=== PATIENT | female | born 1990 | race Caucasian/White ===

== ENCOUNTER → 2021-05-21 11:49 | Outpatient (CLI) | payer OTHER, SELFPAY ==
[2021-05-21 12:36] LABS: Hematocrit 38.6 % (36-46); Hemoglobin 12.4 g/dL (12.0-16.0); Mean Corpuscular HGB Conc 32.1 % (30-36); Mean Corpuscular Hemoglobin 26.1 PG (26-34); Mean Corpuscular Volume 81.5 fL (80-100); Platelet Count 263 X10^3/uL (150-400); Red Blood Cell Count 4.74 X10^6/uL (4.0-5.2); Red Cell Distribution Width 17.5 % (11.6-14.8)
[2021-05-21 13:19] LABS: Alanine Aminotransferase 20 IU/L (<35); Albumin 4.2 g/dL (3.5-5.0); Albumin Globulin Ratio 1.3 (1.0-2.8); Alkaline Phosphatase 80 U/L (38-126); Aspartate Aminotransferase 31 IU/L (14-36); BUN Creatinine Ratio 16.2 (6-22); Bilirubin Total 0.4 mg/dL (0.2-1.3); Blood Urea Nitrogen 11 mg/dL (7-17); Calcium 9.2 mg/dL (8.4-10.2); Carbon Dioxide 25 mmol/L (22-32); Chloride 106 mmol/L (98-107); Cholesterol 147 mg/dL (140-199); Estimated Glomerular Filt Rate > 60.0 mL/min (>60); Globulin 3.3 g/dL (1.7-4.1); Glucose 82 mg/dL (70-100); HDL Cholesterol 60 mg/dL (40-60); HEMOLYSIS < 15 (0-50); LDL Cholesterol Calculated 79 mg/dL (<100); Potassium 3.9 mmol/L (3.4-5.1); Sodium 137 mmol/L (137-145); Total Protein 7.5 g/dL (6.3-8.2); Triglycerides 39 mg/dL (35-150)
[2021-05-21 13:49] LABS: TSH w/ Reflex to FT4 0.88 uIU/mL (0.47-4.68)
== END ==
PROVIDERS: PCP Nurse Practitioner Family; Referring Provider Nurse Practitioner Family; Visit Provider Nurse Practitioner Family
DX: N92.0 Excessive and frequent menstruation with regular cycle (principal); N92.6 Irregular menstruation, unspecified; R10.2 Pelvic and perineal pain; Z13.220 Encounter for screening for lipoid disorders
CPT/HCPCS: 36415; 80053; 80061; 84443; 85027

== ENCOUNTER → 2021-07-09 09:45 | Outpatient (CLI) | payer OTHER, SELFPAY ==
[2021-07-09 11:00] LABS: Prolactin 9.5 ng/mL (3.0-18.6)
[2021-07-09 11:01] LABS: Erythrocyte Sedimentation Rate 7 MM/HR (0-20)
== END ==
PROVIDERS: PCP Nurse Practitioner Family; Referring Provider Obstetrics & Gynecology; Visit Provider Obstetrics & Gynecology
DX: N92.6 Irregular menstruation, unspecified (principal)
CPT/HCPCS: 36415; 84146; 85651

== ENCOUNTER → 2021-07-16 11:40 | Outpatient (CLI) | payer OTHER, SELFPAY ==
--- NOTE | 2021-07-16 11:41 | DI.US.S_ITS ---
PROCEDURE: US PELVIC COMPLETE INDICATIONS: DUB TECHNIQUE: Real-time scanning was performed of the pelvic organs, with image documentation. Additional endovaginal scanning was necessary due to incomplete visualization of the adnexal and endometrial structures by transabdominal scanning. COMPARISON: None. FINDINGS: Uterus: Uterus is normal in size at 8.3 x 4.5 x 6.3 cm. The endometrium measures 18 mm in combined thickness. The endometrial stripe is thickened and heterogeneous. Ovaries: The right ovary measures 2.6 x 1.7 x 3.6 cm. The left ovary measures 3.4 x 2 x 2.9 cm and demonstrates a complex cyst with increased perform vascularity that measures up to 1.9 cm. The ovaries otherwise have a normal sonographic appearance. No adnexal masses are seen. Other: No pathologic free abdominal or pelvic fluid. IMPRESSION: Abnormally thickened and heterogeneous endometrial stripe, measuring 18 mm. 19 mm complex cyst seen involving the left ovary, which is likely related to a collapsing hemorrhagic cyst. Dictated by: Christian Amin M.D. on 07/16/2021 at 12:46 Approved by: Christian Amin M.D. on 07/16/2021 at 12:48
== END ==
PROVIDERS: PCP Nurse Practitioner Family; Referring Provider Obstetrics & Gynecology; Visit Provider Obstetrics & Gynecology
DX: N94.6 Dysmenorrhea, unspecified (principal); N92.0 Excessive and frequent menstruation with regular cycle; N92.6 Irregular menstruation, unspecified; N83.292 Other ovarian cyst, left side; R93.89 Abnormal findings on diagnostic imaging of other specified body structures
CPT/HCPCS: 76830; 76856

== ENCOUNTER → 2021-07-30 11:20 | Outpatient (CLI) | payer OTHER, SELFPAY ==
[2021-07-30 12:43] LABS: COVID19 -Nasal RAPID Negative (Negative)
== END ==
PROVIDERS: PCP Nurse Practitioner Family; Visit Provider Obstetrics & Gynecology
DX: Z01.812 Encounter for preprocedural laboratory examination (principal); Z20.822 Contact with and (suspected) exposure to COVID-19
CPT/HCPCS: 87635

== ENCOUNTER 2021-07-30 11:28 | Day surgery (SDC) | payer OTHER, SELFPAY ==
[2021-07-27 15:02] VITALS: BMI 36.5
--- NOTE | 2021-07-28 08:34 | P.HPOB_ITS ---
History of Present Illness History of Present Illness Narrative: Kim is a 31-year-old A1 who has been attempting to conceive with the father of her 2 pregnancies for the last 12 months without success.? Patient experienced menarche at age 15 and had regular predictable monthly menses up until about 6 months ago.? She conceived spontaneously and delivered a viable female via spontaneous vaginal in January of 2016.? That was complicated by preeclampsia in the 3rd trimester and hemorrhage.? In 2018 she conceived again but had an an embryonic and spontaneously miscarried approximately 9 weeks.? She did not have a D&C and they followed her with serial ultrasounds for 2-3 weeks at the end of which she developed endometritis and was admitted with fever and pelvic pain for IV antibiotic therapy.? She recovered completely and has no residual pelvic pain components and nurse periods remain regular up until about 6 months ago.? Since that time her intermenstrual interval has been extremely variable with spotting and staining in between.? In addition the nature for vaginal bleeding during her menses is quite different in that it is bright red with clots as opposed to dark sticky menstrual blood consistent with anovulatory bleeding.? Of note however is that over the last year she has gained 30 lb without any significant change in her diet or activity levels.? Over that 12 month period of time she and her have tried to conceive that have been unsuccessful in doing so.? Her is the father of her child and her partner at the time of conception for the failed in 2019.? Her primary care provider has performed some blood work already with a TSH recently of 0.88.? She has not had any pelvic imaging and no evaluation of tubal patency to this point.? 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 Pap smear is current and she has a history of normal Paps throughout her adult reproductive life. 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 Following her initial assessment, the patient had pelvic ultrasound performed which shows the endometrial stripe to be thickened to 18 mm and heterogenous.? In addition there is a 1.9 cm complex cyst within the left ovary which measures 3.4 x 2 x 2.9 cm.? After reviewing the findings with the patient and discussing options for further evaluation/management, the decision was made to proceed with laparoscopy, possible left ovarian cystectomy, chromotubation, hysteroscopy with possible biopsies, and dilation and curettage of the uterus.? She presents today for her scheduled surgery. [facility] Medical History Anemia (~2015) Anxiety (~2019) Chicken pox (~1991) Depression (~2019) Headache (~2007) Heavy menses (~1999) Irregular menstrual cycle Leg pain (~2019) MRSA (methicillin resistant Staphylococcus aureus) (~2011) Ovarian cyst Painful menstrual periods (~2001) Pelvic cramping Preeclampsia (~2015) Seborrheic dermatitis (~2011) Seizures (~1995) Surgical History Anesthesia History of tonsillectomy [place] teeth removed Family History Father Skin cancer Mother Anxiety Joint pain Mental health problem Brother Anxiety Mental health problem Grandfather Cancer History of heart disease Hyperlipidemia Hypertension Grandmother Cancer History of heart disease Diabetes mellitus Hypertension Mental health problem Stroke Grandfather Skin cancer Hypertension Stroke Social History household members: spouse and children Smoking Status: Never smoker alcohol intake: current substance use type: does not use Meds Home Medications and Allergies Home Medications Medication Instructions Recorded Confirmed Type multivitamin 1 tab PO DAILY 05/07/21 07/28/21 History L.acidoph, paracasei,B. lactis 10 cell PO 07/28/21 07/28/21 History billion cell capsule (Digestive Advantage Advanced Probiotic) Allergies Allergy/AdvReac Type Severity Reaction Status Date / Time cefaclor [From Ceclor] AdvReac Intermediate Hives Verified 07/28/21 07:59 Review of Systems Review of Systems Narrative: Problem-specific ROS positives included in HPI Exam Const General: cooperative and comfortable Nutritional Appearance: overweight Orientation: alert and oriented x3 HENMT Head: atraumatic and abrasion Ears: hearing grossly normal bilaterally Nose: external nose normal Mouth: oral mucosae normal Teeth and gingiva: dentition normal Throat: posterior oropharynx normal Eyes General: appearance normal, both eyes and all related structures Eyelids: eyelids normal Conjunctivae: conjunctivae normal Sclera: sclerae normal Cornea: corneas normal Pupils: PERRL EOM: EOM intact bilaterally Resp Effort & Inspection: normal respiratory effort and able to speak in complete sentences Auscultation: clear to auscultation bilaterally Cardio Rate: regular rate Rhythm: regular rhythm Heart Sounds: S1 normal, S2 normal and no murmurs GI Inspection: normal to inspection Palpation: soft, no hepatosplenomegaly and tender (RLQ) External Female Exam: normal external appearance Speculum Exam - Vagina: normal appearance of the vagina and normal vaginal discharge Speculum Exam - Cervix: normal appearance of the cervix and cervical os open Bimanual Exam- Vagina & Uterus: normal bimanual exam, uterine size normal, uterine shape normal and non-tender Bimanual Exam- Adnexa, other: normal adnexae, no masses and tender (Mild, bilateral) OB/External & Speculum: cervical os open Skin General: no rashes or lesions noted Extrem General: no calf tenderness Psych Appearance: grossly normal Mental Status: mental status grossly normal Speech and Movement: speech and movement normal Mood: congruent mood Affect: normal affect Attitude: cooperative Thought Process: normal Thought Content: normal Judgment: judgment good Assessment & Plan Assessment and plan (1) Left ovarian cyst: Status: Acute (2) Abnormal vaginal bleeding with endometrial thickness less than 16 mm present on transvaginal ultrasound in premenopausal patient: Status: Acute (3) Pelvic pain: Status: Acute (4) Secondary female infertility: Status: Acute (5) Menometrorrhagia: Status: Acute Assessment & Plan narrative: Patient counseled regarding alternatives, risks, benefits, and potential complications associated with diagnostic laparoscopy with possible left ovarian cystectomy, chromotubation, hysteroscopy with possible biopsies, dilation and curettage of the uterus.? With full understanding of the above a written consent was executed, signed, and witnessed 07/28/2021. COVID-19 COVID-19 status: Negative Time Spent With Patient Time with patient: less than 30 minutes
[2021-07-30] VITALS (11 sets, daily range): BP systolic 115–135; BP diastolic 72–97; PULSE 60–84; RESP 12–20; TEMP 36.1–36.6; O2SAT 96–100; BMI 36.0
--- NOTE | 2021-07-30 | PATH_ITS ---
[facility] Accession Number: [id number] . 01 Material submitted: . endometrium - ENDOMETRIAL CURETTINGS . 02 Diagnosis: Endometrial, Curettings: Portions of proliferative endometrium; negative for glandular hyperplasia, cytologic atypia, or malignancy. Some endometrial fragments demonstrate prominent vessels, suggestive of polyp, if clinical and imaging studies are concordant. MRV 08/03/2021 1359 Local . 02 Electronically signed: . Shari Maldonado MD, Pathologist NPI- [id number] . 01 Gross description: . ENDOMETRIAL CURETTINGS: Received in formalin are multiple fragment(s) of rogers, soft tissue measuring 3.0 x 2.5 x 0.9 cm in aggregate submitted entirely in 2 cassette(s) /QBJ 07/31/2021 0833 Local . 02 Pathologist provided ICD-10: N92.0, R93.89, N83.202, N92.4, R10.2, N97.9, N92.1 . 02 CPT . 871869 Performed at: 01 [facility] [address], [place], [place] [id number] MD Perfecto Pimentel MD Phone: [phone] Performed at: 02 [facility] [place] [address] [place], [place] [id number] MD Nancy El MD Phone: [phone]
[2021-07-30] MEDS: LACTATED RINGERS 1,000 ML 100 ML IV (12:40)
[2021-07-30] MEDS: SCOPOLAMINE 1 PATCH TOP (13:13)
--- NOTE | 2021-07-30 13:31 | PM.OP.1 ---
Operative Date/Time/Diagnoses Date of procedure: 07/30/21 Time of procedure: 13:45 Pre-op diagnosis: Pelvic pain, left ovarian cyst, secondary infertility, menometrorrhagia, thickened endometrial stripe Post-op diagnosis: other (Same as above; Pelvic endometriosis) Procedure & Clinicians Procedure: Diagnostic laparoscopy with fulguration/destruction of endometrial implants, lysis of adhesions, hysteroscopy, dilation and curettage of the uterus Same procedure as scheduled: Yes Indications: Kim is a 31-year-old A1 who has been attempting to conceive with the father of her 2 pregnancies for the last 12 months without success.? Patient experienced menarche at age 15 and had regular predictable monthly menses up until about 6 months ago.? She conceived spontaneously and delivered a viable female infant via spontaneous vaginal in January of 2016.? That was complicated by preeclampsia in the 3rd trimester and hemorrhage.? In 2018 she conceived again but had an an embryonic and spontaneously miscarried approximately 9 weeks.? She did not have a D&C and they followed her with serial ultrasounds for 2-3 weeks at the end of which she developed endometritis and was admitted with fever and pelvic pain for IV antibiotic therapy.? She recovered completely and has no residual pelvic pain components and nurse periods remain regular up until about 6 months ago.? Since that time her intermenstrual interval has been extremely variable with spotting and staining in between.? In addition the nature for vaginal bleeding during her menses is quite different in that it is bright red with clots as opposed to dark sticky menstrual blood consistent with anovulatory bleeding.? Of note however is that over the last year she has gained 30 lb without any significant change in her diet or activity levels.? Over that 12 month period of time she and her have tried to conceive that have been unsuccessful in doing so.? Her is the father of her child and her partner at the time of conception for the failed in 2019.? Her primary care provider has performed some blood work already with a TSH recently of 0.88.? She has not had any pelvic imaging and no evaluation of tubal patency to this point.? 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 Pap smear is current and she has a history of normal Paps throughout her adult reproductive life. 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 Following her initial assessment, the patient had pelvic ultrasound performed which shows the endometrial stripe to be thickened to 18 mm and heterogenous.? In addition there is a 1.9 cm complex cyst within the left ovary which measures 3.4 x 2 x 2.9 cm.? After reviewing the findings with the patient and discussing options for further evaluation/management, the decision was made to proceed with laparoscopy, possible left ovarian cystectomy, chromotubation, hysteroscopy with possible biopsies, and dilation and curettage of the uterus.? She presents today for her scheduled surgery. Surgeon: Mario Grey Crepe Laminator Operator: Deanna Ochoa Click Yes if Unassisted: Yes Anesthesia Type: General Operative Notes Findings: The uterus is normal in size and shape. It is in the mid plane to slightly retroverted. Both fallopian tubes are normal in their entirety. Each fimbria was carefully visualized and there was no evidence of agglutination or adhesion involvement. The anterior cul-de-sac has scattered superficial endometriotic implants. The ovaries are normal in size and there are no significant lesions noted within either ovary. On the surface of both ovaries are filmy endometriotic adhesions which were destroyed during the course of the surgery. In addition there are some paraovarian adhesions involving the right ovary to the upper portion of the pelvic sidewall and these 2 were lysed/destroyed during the course of the surgery. In the posterior cul-de-sac there are several endometriotic implants at the reflection of the sigmoid and the posterior aspect of the cervix. Early adhesion formation is ongoing but these adhesions were easily lysed with blunt dissection. There were superficial endometriotic implants on the left side of the posterior cul-de-sac as well as the right. There were no endometrial implants or adhesions involving the ovarian fossa on either side. The cecum and appendix were carefully visualized and there were no adhesions or evidence of endometriosis. The liver edge was unremarkable and the visible portion of the gallbladder was also unremarkable. Hysteroscopy demonstrated a normal endometrial cavity with a lush endometrium but no focal lesions visualized within the endometrial cavity. Closure Type: primary Estimated Blood Loss (mL): 25 Blood products transfused: none Procedure in detail: With the patient under satisfactory general endotracheal anesthesia in the modified dorsal lithotomy position, the abdomen, perineum, and vagina were prepped and draped in the usual fashion for this procedure. A pre-surgical safety time-out was then taken in accordance with [facility] OR protocols. A bivalve speculum was then inserted in the vagina and the anterior lip of the cervix grasped with a single-tooth tenaculum. The endocervical canal was easily dilated so as to be able to introduce a Zumi uterine manipulator which was held in place with a 5 cc balloon. The umbilicus was then infiltrated with lidocaine with epinephrine and a 5 mm incision was made vertically in the umbilical skin. A Veress needle was then used to insufflate the abdomen with carbon dioxide and a 5 mm trocar and sleeve were placed. The scope was used to visualize the abdominal cavity and 2 additional 5 mm ports were placed on the right and left mid quadrant after infiltration of the skin and subcutaneous tissues with lidocaine. Using a 3 puncture technique the pelvis and abdomen were visualized laparoscopically and documented photographically. The pelvis was carefully inspected and the adhesions from the rectosigmoid to the posterior aspect of the cervix were easily divided with blunt dissection. The cul-de-sac was thoroughly irrigated and all the areas of abnormality carefully visualized. Using a PK device, bipolar current was used to coagulate all the areas of superficial endometriosis in the posterior cul-de-sac and the anterior cul-de-sac. With the rectosigmoid away from the posterior aspect of the cervix, the areas of endometriosis involving the posterior aspect of the cervix were then coagulated with bipolar current. The right ovary was then mobilized and the adhesions identified. The adhesions were excised and coagulated with the PK device. Superficial filmy adhesions involving the surface of the ovary on the right side were then coagulated with the PK device as well. At the completion of the case there were no adhesions involving either the ovary or the tube on the right-hand side. Attention was then turned to the left and a small superficial implant of endometriosis on the serosa of the distal isthmic portion of the left tube was grasped with the PK device and carefully coagulated. Adhesions involving the surface of the ovary on the left were then coagulated with the PK device. At the end of this portion of the case or no adhesions remaining on the surface of the left ovary. The pelvis was carefully inspected again and there were no apparent areas of residual endometriosis or bleeding. The pneumoperitoneum was then vented, the laparoscopic sleeves removed, and incisions closed with 4-0 Monocryl using inverted interrupted stitches. Appropriate dressings were applied and attention was turned to performance of hysteroscopy. The Zumi manipulator was then removed from the endometrial cavity and a bivalve speculum inserted in the vagina. The cervix was regrasped by the anterior lip with single-tooth tenaculum and the endocervical canal dilated easily. Hysteroscope was then placed into the endometrial cavity and using sterile saline as a distention medium the endometrial cavity was thoroughly visualized. There were no focal lesions within the endometrial cavity but instead the entire endometrium was diffusely thickened. The hysteroscope was then removed and curettage of the uterus accomplished with an endometrial curettage specimen submitted for pathologic evaluation. The tenaculum was then removed from the cervix and there were no bleeding points noted. The speculum was removed from the vagina and the patient was awaken from general anesthesia at that point having tolerated the procedure well. She was transferred to the PACU for a period of recovery and observation. Estimated blood loss was 25 cc and there were no complications experienced. Complications: none Post-operative Condition: stable Disposition: PACU Plan for aftercare: Routine post-op care. 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
[2021-07-30] MEDS: AMPICILLIN/SULBACTAM 3 GM 3 GM in SODIUM CHLORIDE 0.9% 100 ML IV (13:45)
[2021-07-30] MEDS: ACETAMINOPHEN IV 1,000 MG/100 ML VIAL 400 MG IV (13:54)
--- NOTE | 2021-07-30 14:12 | SUR.OPER ---
Lithotomy on padded OR bed, head on pillow, arms secured on padded arm boards at <90 degrees abduction. Legs secured in padded yellow fins stirrups.
[2021-07-30] MEDS: BUPIVACAINE 0.5% (PF) 30 ML, EPINEPHrine 0.15 MG INJ (14:24)
[2021-07-30] MEDS: HYDROMORPHONE 2 MG INJ IV ×3 (15:01→15:27)
[2021-07-30] MEDS: hydrOXYzine 50 MG/ML INJ 25 MG IM (15:46)
[2021-07-30] MEDS: OXYCODONE IR 5 MG TABLET PO (16:33)
== END 2021-07-30 17:00 | disposition home or self-care (01) ==
PROVIDERS: PCP Nurse Practitioner Family; Referring Provider Obstetrics & Gynecology; Visit Provider Obstetrics & Gynecology
PROC: (CPT 58662; principal; 2021-07-30 13:30)
PROC: 0UDB8ZZ Extraction of Endometrium, Via Natural or Artificial Opening Endoscopic (ICD-10-PCS; CPT 58558; 2021-07-30 13:30)
DX: R93.89 Abnormal findings on diagnostic imaging of other specified body structures (principal); N83.202 Unspecified ovarian cyst, left side; N97.9 Female infertility, unspecified; N92.1 Excessive and frequent menstruation with irregular cycle; Z20.822 Contact with and (suspected) exposure to COVID-19; N73.6 Female pelvic peritoneal adhesions (postinfective); N80.3 Endometriosis of pelvic peritoneum
CPT/HCPCS: 58662; 58558; 81025; 87635; J0131; J0171; J0295; J1100; J1170; J1885; J2250; J2405; J2704; J3010; J3410

== ENCOUNTER → 2022-08-16 09:59 | Outpatient (CLI) | payer OTHER, SELFPAY ==
--- NOTE | 2022-08-16 10:00 | DI.US.S_ITS ---
PROCEDURE: US OB <= 14 WEEKS FETUS INDICATIONS: DATING OUTSIDE/PRIOR DATING DATA: Last menstrual period (LMP): 06/20/22. LMP-based estimated date of delivery (NORBERT): 03/27/23. First dating scan (date and location): 08/16/22, current study. Estimated date of delivery (NORBERT) from first dating scan: 03/28/23. TECHNIQUE: Real-time scanning was performed of the fetus and maternal pelvic organs, with image documentation. Endovaginal scanning was also performed to better visualize the fetus and maternal ovaries. COMPARISON: None. FINDINGS: Anteverted uterus contains a fundal gestational sac with a decidual response. And there is a single pole with a crown-rump length of 1.56 cm corresponding to an eight week 0 day plus or minus five days gestation. There is detectable cardiac activity at a rate of 173 beats per minute. An unfused amnion is noted. No perigestational hemorrhage. Both ovaries have a normal appearance. There is a dominant follicle within the right ovary. The cervix is closed. No free pelvic fluid. IMPRESSION: 1. Single living intrauterine with a gestational age of eight weeks 0 days, in good agreement with the clinically assigned gestational age. We strive to produce accurate, complete, and clear reports of imaging services. To assist us in improving patient care, this report was composed using standard report templates and voice recognition software. Therefore, it may contain abnormal punctuation, insertions and/or omissions. Occasional wrong-word or sound-alike substitutions may occur. Though we review the report and make efforts to correct it, we do recommend that the report be read carefully in proper context to recognize any text inaccuracies. Dictated by: Meg Georges M.D. on 08/16/2022 at 11:44 Approved by: Meg Georges M.D. on 08/16/2022 at 11:47
== END ==
PROVIDERS: PCP Registered Nurse Diabetes Educator; Referring Provider Obstetrics & Gynecology; Visit Provider Obstetrics & Gynecology
DX: Z34.81 Encounter for supervision of other normal pregnancy, first trimester (principal); Z3A.08 8 weeks gestation of pregnancy
CPT/HCPCS: 76801; 76830

== ENCOUNTER → 2022-09-28 12:33 | Outpatient (CLI) | payer OTHER, SELFPAY ==
[2022-09-28 13:36] LABS: Add Manual Diff / Slide Review NO; Basophils Absolute Auto 0 /uL (0-100); Basophils Percent Auto 0.2 % (0-2); Eosinophils Absolute Auto 0 /uL (0-450); Hematocrit 38.9 % (36-46); Hemoglobin 12.8 g/dL (12.0-16.0); Lymphocytes Absolute Auto 2700 /uL (1100-4500); Lymphocytes Percent Auto 23.4 % (25-40); Mean Corpuscular HGB Conc 32.9 % (30-36); Mean Corpuscular Hemoglobin 29.5 PG (26-34); Mean Corpuscular Volume 89.7 fL (80-100); Monocytes Absolute Auto 600 /uL (0-900); Monocytes Percent Auto 5.2 % (3-14); Neutrophils Absolute Auto 8200 /uL (1500-7000); Neutrophils Percent Auto 71.2 % (50-75); Platelet Count 241 X10^3/uL (150-400); Red Blood Cell Count 4.33 X10^6/uL (4.0-5.2); Red Cell Distribution Width 14.1 % (11.6-14.8); White Blood Cell Count 11.5 X10^3/uL (4.5-11.0)
[2022-09-28 13:51] LABS: Appearance Urine UA CLEAR; Bilirubin Urine UA NEGATIVE (NEGATIVE); Color Urine UA YELLOW; Glucose Urine UA NEGATIVE (Negative); Ketones Urine UA NEGATIVE (NEGATIVE); Leukocyte Esterase Urine UA NEGATIVE (NEGATIVE); Nitrite Urine UA NEGATIVE (Negative); Occult Blood Urine UA NEGATIVE (Negative); Protein Urine UA NEGATIVE (Negative); Specific Gravity Urine UA <=1.005 (1.000-1.035); Urobilinogen Urine UA 0.2 E.U./dL (0.2)
[2022-09-28 13:53] LABS: pH Urine UA 6.5 (4.5-8.0)
[2022-09-28 13:59] LABS: Alanine Aminotransferase 31 IU/L (<35); Albumin 3.9 g/dL (3.5-5.0); Albumin Globulin Ratio 1.1 (1.0-2.8); Alkaline Phosphatase 76 U/L (38-126); Aspartate Aminotransferase 28 IU/L (14-36); BUN Creatinine Ratio 19.6 (6-22); Bilirubin Total 0.2 mg/dL (0.2-1.3); Blood Urea Nitrogen 10 mg/dL (7-17); Calcium 8.6 mg/dL (8.4-10.2); Carbon Dioxide 25 mmol/L (22-32); Chloride 100 mmol/L (98-107); Estimated Glomerular Filt Rate > 60 mL/min (>60); Globulin 3.5 g/dL (1.7-4.1); Glucose 71 mg/dL (70-100); HEMOLYSIS < 15 (0-50); Potassium 3.5 mmol/L (3.4-5.1); Sodium 135 mmol/L (137-145); Total Protein 7.4 g/dL (6.3-8.2); Uric Acid 2.6 mg/dL (2.5-6.2)
[2022-09-29 05:24] LABS: RPR Screen Non Reactive (Non Reactive)
[2022-09-29 07:39] LABS: Varicella IgG Antibody 1070 index (Immune >165)
[2022-09-30 18:36] LABS: HIV 1 & 2 Ab/Ag 4th Gen Combo NEGATIVE (NEGATIVE); Hep C Virus Ab w/Reflex Quant NEGATIVE s/c (NEGATIVE); Hepatitis B Surface Antigen NEGATIVE s/c (NEGATIVE); Rubella Antibody IgG 51.9 IU/mL (>15)
== END ==
PROVIDERS: PCP Registered Nurse Diabetes Educator; Referring Provider Obstetrics & Gynecology; Visit Provider Obstetrics & Gynecology
DX: O09.299 Supervision of pregnancy with other poor reproductive or obstetric history, unspecified trimester (principal)
CPT/HCPCS: 36415; 80053; 80055; 81003; 84550; 86787; 86803; 86850; 86900; 86901; 87086; 87389

== ENCOUNTER → 2022-10-27 14:16 | Outpatient (CLI) | payer OTHER, SELFPAY ==
[2022-10-27 20:08] LABS: Urine N gonorrhoeae NOT DETECTED
[2022-10-27 20:35] LABS: Urine Chlamydia DETECTED
[2022-10-29 20:38] LABS: AFP, Serum 26.3 ng/mL (.); Estriol, Free 1.29 ng/mL (.); Inhibin A, Dimeric 86.45 pg/mL (.); Maternal Ethnicity Caucasian (.); Maternal Weight 234 lbs (.); Number of Fetuses No (.); OSBR Risk 1 IN 10000 (.); Results Report (.); Test Results *Screen Negative* (.); hCG, MoM 1.28 (.); hCG, Serum 28466 mIU/mL (.)
[2022-11-01 14:51] LABS: AFP PDF SEE PT SCANS
== END ==
PROVIDERS: PCP Registered Nurse Diabetes Educator; Referring Provider Obstetrics & Gynecology; Visit Provider Obstetrics & Gynecology
DX: Z34.82 Encounter for supervision of other normal pregnancy, second trimester (principal); Z11.3 Encounter for screening for infections with a predominantly sexual mode of transmission; Z3A.18 18 weeks gestation of pregnancy
CPT/HCPCS: 36415; 82105; 82677; 84702; 86336; 87491; 87591

== ENCOUNTER → 2022-11-09 10:18 | Outpatient (CLI) | payer OTHER, SELFPAY ==
[2022-11-09 15:29] LABS: Urine N gonorrhoeae NOT DETECTED
[2022-11-09 15:30] LABS: Urine Chlamydia NOT DETECTED
== END ==
PROVIDERS: PCP Registered Nurse Diabetes Educator; Visit Provider Obstetrics & Gynecology
DX: A74.9 Chlamydial infection, unspecified (principal)
CPT/HCPCS: 87491; 87591

== ENCOUNTER → 2022-11-09 10:18 | Outpatient (CLI) | payer OTHER, SELFPAY ==
--- NOTE | 2022-11-09 10:19 | DI.US.S_ITS ---
PROCEDURE: US OB >= 14 WEEKS FETUS INDICATIONS: 20 Week Anatomy Scan OUTSIDE/PRIOR DATING DATA: Last menstrual period (LMP): 06/20/2022 LMP-based estimated date of delivery (NORBERT): 03/27/2023 First dating scan (date and location): 08/16/2022 Estimated date of delivery (NORBERT) from first dating scan: 03/28/2023 The calculations are made using the working NORBERT of 03/28/2023. TECHNIQUE: Real-time scanning was performed of the fetus, with image documentation and biometric measurements. Endovaginal scanning: Not indicated COMPARISON: None. FINDINGS: General: A single living intrauterine gestation is present. Presentation: Vertex Placenta: Placental position is fundal, without previa. Amniotic fluid index: 15.9 cm, normal range is 5-24 cm. Single deepest vertical pocket is 5.5 cm. heart rate: 143 beats per minute. Maternal cervical canal: 4.3 cm long. Normal lower limit is 2.5 cm. biometrics: Biparietal diameter: 4.9 cm, 20 weeks, 5 days Head circumference: 18.3 cm, 20 weeks, 5 days Abdominal circumference: 17.2 cm, 22 weeks, 1 day Femur length: 3.3 cm, 20 weeks, 3 days Clinically estimated gestational age: 20 weeks, 2 days Composite gestational age from present scan: 21 weeks, 0 day Estimated weight and percentile: 414 grams, 93 percent Anatomic survey: Neuro: Ventricles are non-dilated at less than 10 mm. Cisterna magna is normal at 3-11 mm. Cerebellum is normal in size and morphology. Nuchal skin fold: Normal at less than 6 mm between 14-21 weeks gestational age. Face: Nose and lips, facial profile are normal. Spine: No evidence for spina bifida. Heart: 4-chambered heart is present, with normal ventricular outflow tracts. Diaphragm: Diaphragm is intact. Stomach: Left-sided stomach is present. Kidneys: No hydronephrosis. Normal is less than 5 mm in 2nd trimester, less than 7 mm in 3rd trimester. Cord: 3-vessel cord has orthotopic insertion. Bladder: Normal in size. Extremities: All 4 extremities identified. IMPRESSION: 1. Single live intrauterine gestation with fetus in vertex presentation. heart rate is 143 beats per minute. Normal amount of amniotic fluid. Normal growth. Estimated weight is at 93 percent. 2. Normal anatomic survey. We strive to produce accurate, complete, and clear reports of imaging services. To assist us in improving patient care, this report was composed using standard report templates and voice recognition software. Therefore, it may contain abnormal punctuation, insertions and/or omissions. Occasional wrong-word or sound-alike substitutions may occur. Though we review the report and make efforts to correct it, we do recommend that the report be read carefully in proper context to recognize any text inaccuracies. Dictated by: Fabrizio Goodson M.D. on 11/09/2022 at 17:53 Approved by: Fabrizio Goodson M.D. on 11/09/2022 at 17:55
== END ==
PROVIDERS: PCP Registered Nurse Diabetes Educator; Referring Provider Obstetrics & Gynecology; Visit Provider Obstetrics & Gynecology
DX: O98.812 Other maternal infectious and parasitic diseases complicating pregnancy, second trimester (principal); Z3A.21 21 weeks gestation of pregnancy
CPT/HCPCS: 76811; 87491; 87591

== ENCOUNTER 2022-11-23 20:35 | Observation (INO) | payer OTHER, SELFPAY ==
--- NOTE | 2022-11-23 21:14 | P.TNLD_ITS ---
Visit Information Visit Information Date of evaluation: 11/23/22 Primary OB Provider: Mario Grey On-call OB Provider: Serena Barkley Comments/Additional reasons for admission: 32yo at 22w2d here with LOF. The pt reports that she took a shower this evening, and when came out had liquid continuously dripping down her leg. This persisted after drying - not large amounts, but enough she was concerned. It was odorless and colorless. She denies any cramping/contractions or vaginal bleeding. She is feeling her baby move regularly. [facility] Medical History (Updated 11/24/22 @ 11:28 by Serena Barkley MD) Abnormal vaginal bleeding with endometrial thickness less than 16 mm present on transvaginal ultrasound in premenopausal patient Anemia (~2015) Anxiety (~2019) Chicken pox (~1991) Depression (~2019) Headache (~2007) Heavy menses (~1999) Infertility (~2020) Irregular menstrual cycle Leg pain (~2019) Menometrorrhagia MRSA (methicillin resistant Staphylococcus aureus) (~2011) Ovarian cyst Painful menstrual periods (~2001) Pelvic cramping Preeclampsia (~2015) Seborrheic dermatitis (~2011) Secondary female infertility Seizures (~1995) Surgical History (Updated 07/28/22 @ 10:12 by Mckenzie Child RN) Anesthesia History of hysteroscopy History of tonsillectomy [place] teeth removed Family History (Updated 07/28/22 @ 10:18 by Mckenzie Child, LUANA) Father Skin cancer Melanoma Nerve damage Mother Anxiety Degenerative joint disease Small bowel mass Brother Anxiety Low testosterone Grandfather Cancer History of heart disease Hyperlipidemia Hypertension Grandmother History of heart disease Diabetes mellitus Hypertension Mental health problem Stroke Breast cancer Grandfather Skin cancer Hypertension Stroke Social History marital status: number of children: 1 household members: spouse and children lives independently: Yes housing: house pets and animals: Yes (1 small dog) education level: vocational occupational status: employed ([employer]) current occupational exposures/hazards: Yes (takes proper precautions w/ chemicals at work) special phan needs: No travel history: recent ([place] in December) seatbelt use: always water heater temp set < 120 deg: Yes working smoke detector in home: Yes fire extinguisher in home: Yes carbon monox detector in home: Yes firearms in home: Yes firearms unloaded and locked: Yes do you feel safe at home: Yes Smoking Status: Never smoker second hand exposure: No alcohol intake: former (1-2/month prior to ) substance use type: does not use during the past year weight has: decreased > 10 lbs well-balanced diet: daily or most days daily servings fruits/ve or more times/day caffeine: Yes (tea; aware of 200mg limit) Type(s) of exercise: aerobic and weight lifting frequency: 3-4 times per week Evaluation Evaluation Non-invasive Membranes Rupture Test: negative Comments: No contractions on [place] FHT 150s on monitoring, broken tracing as expected for gestational age Diagnosis, Plan/Disposition Final Diagnosis (1) Feared condition not demonstrated: Status: Acute (2) 22 weeks gestation of : Status: Acute Plan/Disposition Plan: 32yo at 22w2d here for concern of ROM, however negative Amniosure. Reassuring for no rupture. No contractions on [place]. Stable for d/c home. OB Disposition: home
== END 2022-11-23 21:30 | disposition home or self-care (01) ==
PROVIDERS: Admitting Provider Family Medicine; PCP Registered Nurse Diabetes Educator; Referring Provider Family Medicine; Visit Provider Family Medicine
DX: Z03.71 Encounter for suspected problem with amniotic cavity and membrane ruled out (principal); Z3A.22 22 weeks gestation of pregnancy
CPT/HCPCS: 59050; 84112; G0378; G0379

== ENCOUNTER → 2022-12-24 14:51 | Outpatient (CLI) | payer OTHER, SELFPAY ==
[2022-12-24 16:20] LABS: Hematocrit 36.7 % (36-46); Hemoglobin 12.3 g/dL (12.0-16.0)
[2022-12-24 16:54] LABS: GTT (PREG) 1 Hour PP 50gm Dose 104 mg/dL (76-139)
== END ==
PROVIDERS: PCP Registered Nurse Diabetes Educator; Referring Provider Obstetrics & Gynecology; Visit Provider Obstetrics & Gynecology
DX: Z34.82 Encounter for supervision of other normal pregnancy, second trimester (principal); Z3A.26 26 weeks gestation of pregnancy
CPT/HCPCS: 36415; 82950; 85014; 85018

== ENCOUNTER 2023-01-03 15:42 | Outpatient (CLI) | payer OTHER, SELFPAY ==
[2023-01-03 16:07] LABS: Add Manual Diff / Slide Review NO; Basophils Absolute Auto 100 /uL (0-100); Basophils Percent Auto 1.1 % (0-2); Eosinophils Absolute Auto 0 /uL (0-450); Hematocrit 37.4 % (36-46); Hemoglobin 12.6 g/dL (12.0-16.0); Lymphocytes Absolute Auto 2400 /uL (1100-4500); Lymphocytes Percent Auto 20.4 % (25-40); Mean Corpuscular HGB Conc 33.7 % (30-36); Mean Corpuscular Hemoglobin 30.6 PG (26-34); Mean Corpuscular Volume 90.8 fL (80-100); Monocytes Absolute Auto 700 /uL (0-900); Monocytes Percent Auto 6.3 % (3-14); Neutrophils Absolute Auto 8600 /uL (1500-7000); Neutrophils Percent Auto 72.2 % (50-75); Platelet Count 213 X10^3/uL (150-400); Red Blood Cell Count 4.12 X10^6/uL (4.0-5.2); Red Cell Distribution Width 14.5 % (11.6-14.8); White Blood Cell Count 11.9 X10^3/uL (4.5-11.0)
[2023-01-03 16:25] LABS: Aspartate Aminotransferase 33 IU/L (14-36); Blood Urea Nitrogen 9 mg/dL (7-17); Estimated Glomerular Filt Rate > 60 mL/min (>60); Uric Acid 2.9 mg/dL (2.5-6.2)
[2023-01-03 17:16] LABS: Creatinine Urine Random 23.5 mg/dL; Protein (Total) Urine Random 11 mg/dL (0-12); Protein Creatinine Ratio Urine 0.46 GRAM/24H
[2023-01-03] MEDS: ACETAMINOPHEN 325 MG TABLET 975 MG PO (17:32)
== END 2023-01-03 17:35 | disposition home or self-care (01) ==
LOC: LABOR 17:29 → OB 01-10 15:55
PROVIDERS: PCP Registered Nurse Diabetes Educator; Referring Provider Obstetrics & Gynecology; Visit Provider Obstetrics & Gynecology
DX: O13.3 Gestational [pregnancy-induced] hypertension without significant proteinuria, third trimester (principal); Z3A.28 28 weeks gestation of pregnancy
CPT/HCPCS: 36415; 59025; 82570; 84156; 84450; 84550; 85025; G0378; G0379

== ENCOUNTER 2023-02-23 16:00 | Outpatient (CLI) | payer OTHER, SELFPAY ==
[2023-02-23 16:45] LABS: Add Manual Diff / Slide Review NO; Basophils Absolute Auto 100 /uL (0-100); Basophils Percent Auto 1.1 % (0-2); Eosinophils Absolute Auto 0 /uL (0-450); Hematocrit 37.5 % (36-46); Hemoglobin 12.6 g/dL (12.0-16.0); Lymphocytes Absolute Auto 2400 /uL (1100-4500); Lymphocytes Percent Auto 19.1 % (25-40); Mean Corpuscular HGB Conc 33.5 % (30-36); Mean Corpuscular Hemoglobin 29.7 PG (26-34); Mean Corpuscular Volume 88.5 fL (80-100); Monocytes Absolute Auto 800 /uL (0-900); Monocytes Percent Auto 6.7 % (3-14); Neutrophils Absolute Auto 9300 /uL (1500-7000); Neutrophils Percent Auto 73.1 % (50-75); Platelet Count 204 X10^3/uL (150-400); Red Blood Cell Count 4.23 X10^6/uL (4.0-5.2); White Blood Cell Count 12.7 X10^3/uL (4.5-11.0)
[2023-02-23 16:57] LABS: Alanine Aminotransferase 37 IU/L (<35); Albumin 3.6 g/dL (3.5-5.0); Albumin Globulin Ratio 1.1 (1.0-2.8); Alkaline Phosphatase 134 U/L (38-126); Aspartate Aminotransferase 31 IU/L (14-36); BUN Creatinine Ratio 15.9 (6-22); Bilirubin Total 0.2 mg/dL (0.2-1.3); Bilirubin Unconjugated 0.1 mg/dL (0.0-1.1); Blood Urea Nitrogen 7 mg/dL (7-17); Calcium 8.4 mg/dL (8.4-10.2); Carbon Dioxide 22 mmol/L (22-32); Chloride 103 mmol/L (98-107); Estimated Glomerular Filt Rate > 60 mL/min (>60); Globulin 3.3 g/dL (1.7-4.1); Glucose 79 mg/dL (70-100); HEMOLYSIS < 15 (0-50); Potassium 3.6 mmol/L (3.4-5.1); Sodium 133 mmol/L (137-145); Total Protein 6.9 g/dL (6.3-8.2); Uric Acid 2.9 mg/dL (2.5-6.2)
[2023-02-23 17:01] LABS: Appearance Urine UA CLEAR; Bilirubin Urine UA NEGATIVE (NEGATIVE); Color Urine UA YELLOW; Glucose Urine UA NEGATIVE (Negative); Ketones Urine UA NEGATIVE (NEGATIVE); Leukocyte Esterase Urine UA NEGATIVE (NEGATIVE); Nitrite Urine UA NEGATIVE (Negative); Occult Blood Urine UA NEGATIVE (Negative); Protein Urine UA NEGATIVE (Negative); Urobilinogen Urine UA 0.2 E.U./dL (0.2)
[2023-02-23 17:12] LABS: pH Urine UA 7.5 (4.5-8.0)
[2023-02-23 17:13] LABS: Bacteria Urine None Seen; Culture Indicated Urine Cult Not Indicated; RBC Urine None Seen (0-5/HPF); WBC Urine None Seen (0-5/HPF)
[2023-02-23 17:22] LABS: Creatinine Urine Random 15.8 mg/dL; Protein (Total) Urine Random 12 mg/dL (0-12); Protein Creatinine Ratio Urine 0.75 GRAM/24H
== END 2023-02-23 17:20 | disposition home or self-care (01) ==
LOC: LABOR 16:24 → OB 03-15 14:20
PROVIDERS: PCP Registered Nurse Diabetes Educator; Referring Provider Obstetrics & Gynecology; Visit Provider Obstetrics & Gynecology
DX: O36.8130 Decreased fetal movements, third trimester, not applicable or unspecified (principal); O13.3 Gestational [pregnancy-induced] hypertension without significant proteinuria, third trimester; Z3A.35 35 weeks gestation of pregnancy
CPT/HCPCS: 59025; 59050; 80053; 80076; 81001; 82570; 84156; 84550; 85025; G0378; G0379

== ENCOUNTER → 2023-03-02 11:13 | Outpatient (CLI) | payer OTHER, SELFPAY ==
--- NOTE | 2023-03-02 | DI.US.S_ITS ---
PROCEDURE: US OB FOLLOW UP INDICATIONS: GROWTH/RULE OUT MACROSOMIA OUTSIDE/PRIOR DATING DATA: Last menstrual period (LMP): 06/20/2022. LMP-based estimated date of delivery (NORBERT): 03/27/2023. First dating scan (date and location): 08/16/2022. Estimated date of delivery (NORBERT) from first dating scan: 03/28/2023. The calculations are made using the clinical NORBERT of 03/27/2023. TECHNIQUE: Real-time scanning was performed of the fetus, with image documentation and biometric measurements. COMPARISON: [facility], OB >= 14 WEEKS FETUS, 11/09/2022, 10:26. FINDINGS: General: A single living intrauterine gestation is present. Presentation: Vertex. Placenta: Placental position is fundal/posterior , without previa. Amniotic fluid index: 18.3 cm, normal range is 5-24 cm. Single deepest vertical pocket is 6.1 cm. heart rate: 149 beats per minute. Maternal cervical canal: 4.4 cm long. Normal lower limit is 2.5 cm. biometrics: Biparietal diameter: 8.91 cm, 36 weeks 0 days Head circumference: 32.52 cm, 36 weeks 6 days Abdominal circumference: 31.58 cm, 35 weeks 4 days Femur length: 6.97 cm, 35 weeks 5 days Clinically estimated gestational age: 36 weeks 1 day Composite gestational age from present scan: 36 weeks 3 days Estimated weight and percentile: 2764 g, 35th percentile IMPRESSION: 1. Siddiqui living intrauterine at 36 weeks 3 days based on today's ultrasound. Fetus is in the 35th percentile for weight. Vertex position. 2. Normal placenta and amniotic fluid. We strive to produce accurate, complete, and clear reports of imaging services. To assist us in improving patient care, this report was composed using standard report templates and voice recognition software. Therefore, it may contain abnormal punctuation, insertions and/or omissions. Occasional wrong-word or sound-alike substitutions may occur. Though we review the report and make efforts to correct it, we do recommend that the report be read carefully in proper context to recognize any text inaccuracies. Dictated by: Nic Moe M.D. on 03/02/2023 at 15:12 Approved by: Nic Moe M.D. on 03/02/2023 at 15:18
== END ==
PROVIDERS: PCP Registered Nurse Diabetes Educator; Referring Provider Obstetrics & Gynecology; Visit Provider Obstetrics & Gynecology
DX: Z3A.36 36 weeks gestation of pregnancy; Z36.2 Encounter for other antenatal screening follow-up
CPT/HCPCS: 76816

== ENCOUNTER → 2023-03-09 13:58 | Outpatient (CLI) | payer OTHER, SELFPAY ==
[2023-03-09 20:20] LABS: Creatinine Urine Random 36.7 mg/dL; Protein (Total) Urine Random 10 mg/dL (0-12); Protein Creatinine Ratio Urine 0.27 GRAM/24H
[2023-03-10 15:40] LABS: Strep Grp B PCR NEG for Grp B Strep
== END ==
PROVIDERS: PCP Registered Nurse Diabetes Educator; Visit Provider Obstetrics & Gynecology
DX: O09.299 Supervision of pregnancy with other poor reproductive or obstetric history, unspecified trimester (principal)
CPT/HCPCS: 82570; 84156; 87653

== ENCOUNTER → 2023-03-09 14:10 | Outpatient (CLI) | payer OTHER, SELFPAY ==
[2023-03-09 15:26] LABS: Add Manual Diff / Slide Review NO; Basophils Absolute Auto 0 /uL (0-100); Basophils Percent Auto 0.2 % (0-2); Eosinophils Absolute Auto 0 /uL (0-450); Hematocrit 38.8 % (36-46); Hemoglobin 13.1 g/dL (12.0-16.0); Lymphocytes Absolute Auto 2600 /uL (1100-4500); Lymphocytes Percent Auto 19.4 % (25-40); Mean Corpuscular HGB Conc 33.7 % (30-36); Mean Corpuscular Hemoglobin 30.1 PG (26-34); Mean Corpuscular Volume 89.4 fL (80-100); Monocytes Absolute Auto 900 /uL (0-900); Monocytes Percent Auto 6.3 % (3-14); Neutrophils Absolute Auto 10100 /uL (1500-7000); Neutrophils Percent Auto 74.1 % (50-75); Platelet Count 212 X10^3/uL (150-400); Red Blood Cell Count 4.34 X10^6/uL (4.0-5.2); Red Cell Distribution Width 14.6 % (11.6-14.8); White Blood Cell Count 13.6 X10^3/uL (4.5-11.0)
[2023-03-09 16:14] LABS: Alanine Aminotransferase 33 IU/L (<35); Albumin 3.6 g/dL (3.5-5.0); Albumin Globulin Ratio 1.2 (1.0-2.8); Alkaline Phosphatase 133 U/L (38-126); Aspartate Aminotransferase 32 IU/L (14-36); BUN Creatinine Ratio 12.3 (6-22); Bilirubin Total 0.4 mg/dL (0.2-1.3); Blood Urea Nitrogen 7 mg/dL (7-17); Carbon Dioxide 24 mmol/L (22-32); Chloride 101 mmol/L (98-107); Estimated Glomerular Filt Rate > 60 mL/min (>60); Globulin 3.1 g/dL (1.7-4.1); Glucose 70 mg/dL (70-100); HEMOLYSIS < 15 (0-50); Potassium 4.3 mmol/L (3.4-5.1); Sodium 134 mmol/L (137-145); Total Protein 6.7 g/dL (6.3-8.2)
== END ==
PROVIDERS: PCP Registered Nurse Diabetes Educator; Referring Provider Obstetrics & Gynecology; Visit Provider Obstetrics & Gynecology
DX: O09.299 Supervision of pregnancy with other poor reproductive or obstetric history, unspecified trimester (principal)
CPT/HCPCS: 36415; 80053; 82570; 84156; 85025; 87653

== ENCOUNTER → 2023-03-16 10:31 | Outpatient (CLI) | payer OTHER, SELFPAY ==
[2023-03-16 15:47] LABS: Creatinine Urine Random 21.6 mg/dL; Protein (Total) Urine Random 14 mg/dL (0-12); Protein Creatinine Ratio Urine 0.64 GRAM/24H
== END ==
PROVIDERS: PCP Registered Nurse Diabetes Educator; Visit Provider Obstetrics & Gynecology
DX: Z34.83 Encounter for supervision of other normal pregnancy, third trimester (principal)
CPT/HCPCS: 82570; 84156

== ENCOUNTER → 2023-03-16 10:37 | Outpatient (CLI) | payer OTHER, SELFPAY ==
[2023-03-16 13:06] LABS: Add Manual Diff / Slide Review NO; Basophils Absolute Auto 0 /uL (0-100); Basophils Percent Auto 0.2 % (0-2); Eosinophils Absolute Auto 0 /uL (0-450); Hematocrit 39.8 % (36-46); Hemoglobin 13.2 g/dL (12.0-16.0); Lymphocytes Absolute Auto 2100 /uL (1100-4500); Lymphocytes Percent Auto 16.6 % (25-40); Mean Corpuscular HGB Conc 33.2 % (30-36); Mean Corpuscular Hemoglobin 29.7 PG (26-34); Mean Corpuscular Volume 89.5 fL (80-100); Monocytes Absolute Auto 800 /uL (0-900); Monocytes Percent Auto 6.7 % (3-14); Neutrophils Absolute Auto 9400 /uL (1500-7000); Neutrophils Percent Auto 76.5 % (50-75); Platelet Count 231 X10^3/uL (150-400); Red Blood Cell Count 4.44 X10^6/uL (4.0-5.2); Red Cell Distribution Width 14.4 % (11.6-14.8); White Blood Cell Count 12.3 X10^3/uL (4.5-11.0)
[2023-03-16 13:31] LABS: Alanine Aminotransferase 35 IU/L (<35); Albumin 3.7 g/dL (3.5-5.0); Albumin Globulin Ratio 1.3 (1.0-2.8); Alkaline Phosphatase 144 U/L (38-126); Aspartate Aminotransferase 30 IU/L (14-36); BUN Creatinine Ratio 12.2 (6-22); Bilirubin Total 0.2 mg/dL (0.2-1.3); Blood Urea Nitrogen 6 mg/dL (7-17); Calcium 8.8 mg/dL (8.4-10.2); Carbon Dioxide 21 mmol/L (22-32); Chloride 104 mmol/L (98-107); Estimated Glomerular Filt Rate > 60 mL/min (>60); Globulin 2.8 g/dL (1.7-4.1); Glucose 68 mg/dL (70-100); HEMOLYSIS < 15 (0-50); Potassium 4.2 mmol/L (3.4-5.1); Sodium 134 mmol/L (137-145); Total Protein 6.5 g/dL (6.3-8.2)
== END ==
PROVIDERS: PCP Registered Nurse Diabetes Educator; Referring Provider Obstetrics & Gynecology; Visit Provider Obstetrics & Gynecology
DX: O09.299 Supervision of pregnancy with other poor reproductive or obstetric history, unspecified trimester (principal)
CPT/HCPCS: 36415; 80053; 82570; 84156; 85025

== ENCOUNTER → 2023-03-23 10:32 | Outpatient (CLI) | payer OTHER, SELFPAY ==
[2023-03-23 14:20] LABS: Creatinine Urine Random 31.8 mg/dL; Protein (Total) Urine Random 12 mg/dL (0-12); Protein Creatinine Ratio Urine 0.37 GRAM/24H
== END ==
PROVIDERS: PCP Registered Nurse Diabetes Educator; Visit Provider Obstetrics & Gynecology
DX: O09.299 Supervision of pregnancy with other poor reproductive or obstetric history, unspecified trimester (principal)
CPT/HCPCS: 82570; 84156

== ENCOUNTER → 2023-03-23 10:32 | Outpatient (CLI) | payer OTHER, SELFPAY ==
[2023-03-23 10:51] LABS: Add Manual Diff / Slide Review NO; Basophils Absolute Auto 100 /uL (0-100); Basophils Percent Auto 0.9 % (0-2); Eosinophils Absolute Auto 0 /uL (0-450); Hematocrit 38.8 % (36-46); Lymphocytes Absolute Auto 2000 /uL (1100-4500); Lymphocytes Percent Auto 15.6 % (25-40); Mean Corpuscular HGB Conc 33.6 % (30-36); Mean Corpuscular Hemoglobin 30.1 PG (26-34); Mean Corpuscular Volume 89.7 fL (80-100); Monocytes Absolute Auto 800 /uL (0-900); Neutrophils Absolute Auto 9800 /uL (1500-7000); Neutrophils Percent Auto 77.5 % (50-75); Platelet Count 211 X10^3/uL (150-400); Red Blood Cell Count 4.33 X10^6/uL (4.0-5.2); Red Cell Distribution Width 14.7 % (11.6-14.8); White Blood Cell Count 12.6 X10^3/uL (4.5-11.0)
[2023-03-23 11:05] LABS: Alanine Aminotransferase 37 IU/L (<35); Albumin 3.6 g/dL (3.5-5.0); Albumin Globulin Ratio 1.1 (1.0-2.8); Alkaline Phosphatase 126 U/L (38-126); Aspartate Aminotransferase 29 IU/L (14-36); Bilirubin Total 0.4 mg/dL (0.2-1.3); Blood Urea Nitrogen 8 mg/dL (7-17); Calcium 8.8 mg/dL (8.4-10.2); Carbon Dioxide 22 mmol/L (22-32); Chloride 103 mmol/L (98-107); Estimated Glomerular Filt Rate > 60 mL/min (>60); Globulin 3.4 g/dL (1.7-4.1); Glucose 88 mg/dL (70-100); HEMOLYSIS < 15 (0-50); Potassium 4.1 mmol/L (3.4-5.1); Sodium 132 mmol/L (137-145)
== END ==
PROVIDERS: PCP Registered Nurse Diabetes Educator; Referring Provider Obstetrics & Gynecology; Visit Provider Obstetrics & Gynecology
DX: O09.299 Supervision of pregnancy with other poor reproductive or obstetric history, unspecified trimester (principal)
CPT/HCPCS: 36415; 80053; 85025

== ENCOUNTER 2023-03-23 10:33 | Outpatient (CLI) | payer OTHER, SELFPAY ==
--- NOTE | 2023-03-23 10:39 | DI.US.S_ITS ---
PROCEDURE: US OB LIMITED INDICATIONS: FRANCISCO OUTSIDE/PRIOR DATING DATA: Last menstrual period (LMP): 06/20/2022. LMP-based estimated date of delivery (NORBERT): 03/27/2023. First dating scan (date and location): 08/16/2022. Estimated date of delivery (NORBERT) from first dating scan: 03/28/2023. The calculations are made using the clinical NORBERT of 03/27/2023. TECHNIQUE: Real-time scanning was performed of the fetus, with image documentation. Endovaginal scanning: Not performed COMPARISON: None. FINDINGS: A single living intrauterine gestation is present. Presentation: Vertex. Placenta: Placental position is posterior fundal, without previa. Amniotic fluid index: 11.4 cm, normal range is 5-24 cm. Single deepest vertical pocket is 5.7 cm. heart rate: 173 beats per minute beats per minute. Maternal cervical canal: Not visualized . Clinically estimated gestational age: 39 weeks 3 days IMPRESSION: Single living intrauterine at 39 weeks 3 days, NORBERT of 03/27/2023. FRANCISCO of 11.4 cm. heart rate of 173 beats per minute, borderline tachycardia. Dictated by: Bebeto Olea M.D. on 03/23/2023 at 13:27 Approved by: Bebeto Olea M.D. on 03/23/2023 at 13:29
== END 2023-03-23 11:30 | disposition home or self-care (01) ==
LOC: OB 03-30 08:47
PROVIDERS: PCP Registered Nurse Diabetes Educator; Referring Provider Obstetrics & Gynecology; Visit Provider Obstetrics & Gynecology
DX: O13.3 Gestational [pregnancy-induced] hypertension without significant proteinuria, third trimester (principal); Z3A.39 39 weeks gestation of pregnancy; O09.299 Supervision of pregnancy with other poor reproductive or obstetric history, unspecified trimester
CPT/HCPCS: 36415; 59025; 76815; 80053; 82570; 84156; 85025; G0378; G0379

== ENCOUNTER 2023-03-25 16:23 | Inpatient (IN) | payer OTHER, SELFPAY ==
[2023-03-25 17:23] LABS: Add Manual Diff / Slide Review NO; Basophils Absolute Auto 200 /uL (0-100); Basophils Percent Auto 1.5 % (0-2); Eosinophils Absolute Auto 0 /uL (0-450); Hematocrit 38.8 % (36-46); Hemoglobin 12.9 g/dL (12.0-16.0); Lymphocytes Absolute Auto 2700 /uL (1100-4500); Lymphocytes Percent Auto 20.3 % (25-40); Mean Corpuscular HGB Conc 33.3 % (30-36); Mean Corpuscular Hemoglobin 29.9 PG (26-34); Mean Corpuscular Volume 89.6 fL (80-100); Monocytes Absolute Auto 900 /uL (0-900); Monocytes Percent Auto 6.6 % (3-14); Neutrophils Absolute Auto 9700 /uL (1500-7000); Neutrophils Percent Auto 71.6 % (50-75); Platelet Count 203 X10^3/uL (150-400); Red Blood Cell Count 4.33 X10^6/uL (4.0-5.2); Red Cell Distribution Width 14.7 % (11.6-14.8); White Blood Cell Count 13.6 X10^3/uL (4.5-11.0)
[2023-03-25 17:34] LABS: Creatinine Urine Random 20.3 mg/dL; Protein (Total) Urine Random 13 mg/dL (0-12); Protein Creatinine Ratio Urine 0.64 GRAM/24H
[2023-03-25 17:34] LABS: Alanine Aminotransferase 37 IU/L (<35); Albumin 3.6 g/dL (3.5-5.0); Albumin Globulin Ratio 1.1 (1.0-2.8); Alkaline Phosphatase 130 U/L (38-126); Aspartate Aminotransferase 33 IU/L (14-36); BUN Creatinine Ratio 10.9 (6-22); Bilirubin Total 0.2 mg/dL (0.2-1.3); Blood Urea Nitrogen 6 mg/dL (7-17); Calcium 8.6 mg/dL (8.4-10.2); Carbon Dioxide 26 mmol/L (22-32); Chloride 102 mmol/L (98-107); Estimated Glomerular Filt Rate > 60 mL/min (>60); Globulin 3.4 g/dL (1.7-4.1); Glucose 108 mg/dL (70-100); HEMOLYSIS < 15 (0-50); Potassium 3.7 mmol/L (3.4-5.1); Sodium 134 mmol/L (137-145)
[2023-03-25] MEDS: miSOPROStoL 25 MCG TABLET VAG (20:03)
[2023-03-25 20:29] VITALS: BP 136/86; PULSE 83
[2023-03-25] MEDS: LABETALOL 100 MG TABLET 200 MG PO (20:29)
[2023-03-25 20:30] VITALS: BP 136/86
[2023-03-25 20:34] LABS: Add Manual Diff / Slide Review NO; Basophils Absolute Auto 100 /uL (0-100); Basophils Percent Auto 1.1 % (0-2); Eosinophils Absolute Auto 0 /uL (0-450); Hematocrit 39.3 % (36-46); Hemoglobin 13.1 g/dL (12.0-16.0); Lymphocytes Absolute Auto 2900 /uL (1100-4500); Lymphocytes Percent Auto 22.2 % (25-40); Mean Corpuscular HGB Conc 33.4 % (30-36); Mean Corpuscular Hemoglobin 29.6 PG (26-34); Mean Corpuscular Volume 88.6 fL (80-100); Monocytes Absolute Auto 800 /uL (0-900); Monocytes Percent Auto 6.4 % (3-14); Neutrophils Absolute Auto 9200 /uL (1500-7000); Neutrophils Percent Auto 70.3 % (50-75); Platelet Count 212 X10^3/uL (150-400); Red Blood Cell Count 4.43 X10^6/uL (4.0-5.2); Red Cell Distribution Width 14.9 % (11.6-14.8); White Blood Cell Count 13.2 X10^3/uL (4.5-11.0)
--- NOTE | 2023-03-25 21:12 | P.HPOB_ITS ---
OB HPI Date/Time Date of admission: 03/25/23 Date Patient Seen: 03/25/23 Time Patient Seen: 18:45 History of Present Condition Chief complaint: NST/LABOR NORBERT Calculator Estimated Delivery Date Method Current WG Current Estimate 03/27/23 LMP (Certain) 39w 5d Estimated Gestational Age (weeks): 39+5 : 3 Para: 1 care: good care, initiated at week # (14), number of visits (10) and pounds weight gain (73) Dating criteria OB: LMP confirmed by 1st trimester US Ultrasounds: normal 1st trimester US and normal mid trimester US Obstetrical complications: preeclampsia Medical complications OB: none Narrative: H/O PPH H/O PEC, induced at 37 Indications Indication for induction OB: gestational HTN/pre-eclampsia Preadmission Labs Last OB Lab Results: Blood Type O Positive 09/28/22 13:04 Antibody Screen Negative 09/28/22 13:04 Hematocrit 39.3 % (36-46) 03/25/23 20:15 Hemoglobin 13.1 g/dL (12.0-16.0) 03/25/23 20:15 Hepatitis B Surface Antigen Negative s/c (NEGATIVE) 09/28/22 13 :04 Hepatitis C Antibody Negative s/c (NEGATIVE) 09/28/22 13:04 Rubella Antibody 51.9 IU/mL (>15) 09/28/22 13:04 Varicella-Zoster IgG Antibody 1070 index (Immune >165) 09/28/22 13:04 Glucose 1 Hour 104 mg/dL (76-139) 12/24/22 16:01 Group B Streptococcus (PCR) Neg for grp b strep 03/09/23 14:07 -: Chlamydia screen: positive (Tx'd, GEOFF neg) and Urine: negative -: PAP smear: Normal Genetic Screens: Quad screen: Normal External Labs -: Urine: negative Prior (ies) Past Pregnancies Del. Date GA/Weeks Labor Lgth Wt Sex Route Outcome Anesthesia Place Delv Breastfeed Preg Comp Name 01/27/16 37 20 5 lb 8 oz Female vaginal live - full [facility] 3 1/2 years pre-eclampsia hemorrhage [place] 05/27/20 9 spontaneous Delivery Date: 05/27/20 Last Updated by: Mckenzie Child RN blighted ovum Evaluation Evaluation Baseline heart rate: 125 Variability: Moderate (11-25) monitor accelerations: Present Monitor Decelerations: Absent Contraction Frequency (minutes): 7 Uterine Contraction Intensity: Mild Dilation (cm): 0 Effacement (%): 75 Dilation: Closed Effacement: 60-70% station: -1 Position of cervix: posterior Consistency: soft Gonzalez score: 6 PFSH Medical History (Updated 03/23/23 @ 10:37 by Mario Grey MD) Abnormal vaginal bleeding with endometrial thickness less than 16 mm present on transvaginal ultrasound in premenopausal patient Anemia (~2015) Anxiety (~2019) Chicken pox (~1991) Depression (~2019) Headache (~2007) Heavy menses (~1999) Infertility (~2020) Irregular menstrual cycle Leg pain (~2019) Menometrorrhagia MRSA (methicillin resistant Staphylococcus aureus) (~2011) Ovarian cyst Painful menstrual periods (~2001) Pelvic cramping Preeclampsia (~2015) Seborrheic dermatitis (~2011) Secondary female infertility Seizures (~1995) Surgical History (Updated 07/28/22 @ 10:12 by Mckenzie Child RN) Anesthesia History of hysteroscopy History of tonsillectomy [place] teeth removed Family History (Updated 07/28/22 @ 10:18 by Mckenzie Child RN) Father Skin cancer Melanoma Nerve damage Mother Anxiety Degenerative joint disease Small bowel mass Brother Anxiety Low testosterone Grandfather Cancer History of heart disease Hyperlipidemia Hypertension Grandmother History of heart disease Diabetes mellitus Hypertension Mental health problem Stroke Breast cancer Grandfather Skin cancer Hypertension Stroke Social History marital status: number of children: 1 household members: spouse and children lives independently: Yes housing: house pets and animals: Yes (1 small dog) education level: vocational occupational status: employed ([employer]) current occupational exposures/hazards: Yes (takes proper precautions w/ chemicals at work) special phan needs: No travel history: recent ([place] in December) seatbelt use: always water heater temp set < 120 deg: Yes working smoke detector in home: Yes fire extinguisher in home: Yes carbon monox detector in home: Yes firearms in home: Yes firearms unloaded and locked: Yes do you feel safe at home: Yes Smoking Status: Never smoker second hand exposure: No alcohol intake: former (1-2/month prior to ) substance use type: does not use during the past year weight has: decreased > 10 lbs well-balanced diet: daily or most days daily servings fruits/ve or more times/day caffeine: Yes (tea; aware of 200mg limit) Type(s) of exercise: aerobic and weight lifting frequency: 3-4 times per week Meds Home Medications and Allergies Home Medications Medication Instructions Recorded Confirmed Type L.acidoph, paracasei,B. lactis 10 3 cell PO DAILY 07/28/21 03/25/23 History billion cell capsule (Digestive Advantage Advanced Probiotic) magnesium citrate 125 mg capsule 125 mg PO DAILY 07/28/22 03/25/23 History prenat.vits,harry,zxk-wobv-icdxo 1 tab PO DAILY 07/28/22 03/25/23 History aspirin 81 mg capsule 81 mg PO DAILY 03/25/23 03/25/23 History Allergies Allergy/AdvReac Type Severity Reaction Status Date / Time cefaclor [From [facility]] Allergy Intermediate Hives Verified 03/23/23 10:12 OB Exam Narrative Exam Narrative: Generally: Patient is sitting up in bed, no acute distress Fundal height: 40 cm Estimated weight: 7 to 7-1/2 lb Extremities: 1+ edema, 1+ DTRs, no clonus Objective Labs 03/25/23 20:15 03/25/23 17:10 Labs: Laboratory Results - last 24 hr 03/25/23 03/25/23 03/25/23 16:45 17:10 17:10 WBC 13.6 H RBC 4.33 Hgb 12.9 Hct 38.8 MCV 89.6 MCH 29.9 MCHC 33.3 RDW 14.7 Plt Count 203 Neut % (Auto) 71.6 Lymph % (Auto) 20.3 L [place] % (Auto) 6.6 Eos % (Auto) 0.0 L Baso % (Auto) 1.5 Neut # (Auto) 9700 H Lymph # (Auto) 2700 [place] # (Auto) 900 Eos # (Auto) 0 Baso # (Auto) 200 H Sodium 134 L Potassium 3.7 Chloride 102 Carbon Dioxide 26 BUN 6 L Creatinine 0.55 Estimated GFR > 60 BUN/Creatinine Ratio 10.9 Glucose 108 H Calcium 8.6 Total Bilirubin 0.2 AST 33 ALT 37 H Alkaline Phosphatase 130 H Total Protein 7.0 Albumin 3.6 Globulin 3.4 Albumin/Globulin Ratio 1.1 U Random Total Protein 13 H Urine Creatinine 20.3 Protein/Creatinin Ratio 0.64 03/25/23 20:15 WBC 13.2 H RBC 4.43 Hgb 13.1 Hct 39.3 MCV 88.6 MCH 29.6 MCHC 33.4 RDW 14.9 H Plt Count 212 Neut % (Auto) 70.3 Lymph % (Auto) 22.2 L [place] % (Auto) 6.4 Eos % (Auto) 0.0 L Baso % (Auto) 1.1 Neut # (Auto) 9200 H Lymph # (Auto) 2900 [place] # (Auto) 800 Eos # (Auto) 0 Baso # (Auto) 100 Sodium Potassium Chloride Carbon Dioxide BUN Creatinine Estimated GFR BUN/Creatinine Ratio Glucose Calcium Total Bilirubin AST ALT Alkaline Phosphatase Total Protein Albumin Globulin Albumin/Globulin Ratio U Random Total Protein Urine Creatinine Protein/Creatinin Ratio Assessment and Plan Assessment and Plan Assessment and Plan narrative: Assessment: 32-year-old 3 para 1 at 39-,5/7 weeks gestation with preeclampsia GBS negative Unfavorable cervix History of hemorrhage Plan: Labetalol 100 mg p.o. b.i.d. Misoprostol 25 mcg intra vaginal every 4 hours Reassess favorability of cervix in the morning Epidural as necessary Hemorrhage cart for delivery Expected management to spontaneous vaginal delivery Time Spent with Patient Total time spent with greater than 50% in coordination of care (as documented) at patient's floor/unit and/or counseling patient:: 15-24 minutes
[2023-03-25 22:52] VITALS: BP 127/77; PULSE 76
[2023-03-25] MEDS: ZOLPIDEM 5 MG TABLET PO (22:55)
[2023-03-26] MEDS: miSOPROStoL 25 MCG TABLET VAG (00:02)
[2023-03-26] MEDS: LACTATED RINGERS 1,000 ML 100 ML IV (08:41)
[2023-03-26] MEDS: LABETALOL 100 MG TABLET 200 MG PO (08:42)
[2023-03-26] MEDS: OXYTOCIN PREMIX 30 UNIT/500 ML PLAST..BAG IV (08:42)
--- NOTE | 2023-03-26 10:39 | PM.OBPNLAB ---
Date/Time Date Patient Seen: 03/26/23 Time Patient Seen: 10:39 Pain Control Pain control: tolerating well Pelvic Exam Dilation (cm): 4 Effacement (%): 80 station: -1 Amniotic membrane status: Ruptured Comments: SROM clear fluid Contractions Contractions on admission: none Monitor mode: External Pitocin rate (mU/min): 3 Contraction frequency (min): 3 Contraction duration (min): 1 Contraction pattern: Regular Contraction intensity: Moderate Status Heart Rate Baseline: 140 Monitor Accelerations: Present Monitor Decelerations: Variable Monitor Variability: Moderate Assessment and Plan Assessment: active labor Comments: Epidural as needed Expectant management to Con't Labetolol
--- NOTE | 2023-03-26 11:04 | PM.OBPNLAB ---
Date/Time Date Patient Seen: 03/26/23 Time Patient Seen: 11:04 Pain Control Pain control: other (Very uncomfortable) Comments: Patient feeling like she has to push Pelvic Exam Dilation (cm): 7 Effacement (%): 90 station: 0 Amniotic membrane status: Ruptured Contractions Monitor mode: External Pitocin rate (mU/min): 3 Contraction frequency (min): 3 Contraction duration (min): 1 Contraction pattern: Regular Contraction intensity: Strong/Firm Status Heart Rate Baseline: 120 Monitor Accelerations: Present Monitor Decelerations: Early Monitor Variability: Moderate Assessment and Plan Assessment: active labor Comments: Nitrous oxide Expected management to spontaneous vaginal delivery
--- NOTE | 2023-03-26 11:54 | PM.OBPRVD ---
Events: Pre-Eclampsia Labor & Delivery Delivery date: 03/26/23 Cervical ripening method: per misoprostal protocol Induction method: per pitocin protocol Delivery monitor: external FHT and external uterine Route of delivery: Episiotomy description: None L&D Laceration Description: Periurethral - 1st Degree (Right) and Superficial (Perineal) Delivery repair: chromic Quantitative Blood Loss: 100 Anesthesia Type: Local (For repair only) and None Complications: None Narrative: Patient complete and pushed with 1 contraction. At 11:23 a.m., a live male delivered spontaneously over an intact perineum. There was a mild shoulder dystocia which was relieved with Mary Lou maneuver. The body delivered at 11:25 a.m. and was placed on mom's abdomen. Pitocin was given in the IV fluids. The cord was double clamped and cut after it stopped pulsing. Cord bloods were obtained. The placenta delivered intact with a three-vessel cord at 11:32 a.m.. The fundus was massaged to firm. The perineum and vagina were inspected and there was a right first-degree periurethral laceration and a superficial perineal laceration. 10 cc of 1% lidocaine were injected. These were repaired with 3-0 chromic in the usual fashion. A red rubber catheter was placed into the urethra under sterile conditions to make sure there were no stitches in the urethra. Hemostasis was achieved. Apgars 9 at 1 minute and 9 at 5 minutes. No analgesia for the delivery. 1% lidocaine for the repair. . Mom and stable to recovery. [place] Baby 1: Infant gender: Male Presentation: vertex Position: Left Occiput Anterior Placenta delivery description: Spontaneous Cord Vessel Description: 3 Vessels score (1 min): 9 score (5 min): 9 weight: 8 lb 2 oz Plan for aftercare: Routine care
[2023-03-26 17:56] LABS: Add Manual Diff / Slide Review NO; Basophils Absolute Auto 400 /uL (0-100); Basophils Percent Auto 2.1 % (0-2); Eosinophils Absolute Auto 0 /uL (0-450); Hematocrit 38.1 % (36-46); Hemoglobin 12.8 g/dL (12.0-16.0); Lymphocytes Absolute Auto 1800 /uL (1100-4500); Lymphocytes Percent Auto 8.4 % (25-40); Mean Corpuscular HGB Conc 33.5 % (30-36); Mean Corpuscular Hemoglobin 29.8 PG (26-34); Monocytes Absolute Auto 700 /uL (0-900); Monocytes Percent Auto 3.5 % (3-14); Neutrophils Absolute Auto 18100 /uL (1500-7000); Platelet Count 202 X10^3/uL (150-400); Red Blood Cell Count 4.28 X10^6/uL (4.0-5.2); Red Cell Distribution Width 14.6 % (11.6-14.8)
[2023-03-26 18:03] LABS: Alanine Aminotransferase 32 IU/L (<35); Aspartate Aminotransferase 32 IU/L (14-36); Estimated Glomerular Filt Rate > 60 mL/min (>60); Uric Acid 3.2 mg/dL (2.5-6.2)
[2023-03-27 14:06] VITALS: BP 131/76; PULSE 81; RESP 17; TEMP 36.7
== END 2023-03-27 14:25 | disposition home or self-care (01) | DRG 807 ==
PROVIDERS: Obstetrics & Gynecology; Admitting Provider Obstetrics & Gynecology; PCP Registered Nurse Diabetes Educator; Referring Provider Obstetrics & Gynecology; Visit Provider Obstetrics & Gynecology
DX: O14.94 Unspecified pre-eclampsia, complicating childbirth (principal); Z37.0 Single live birth; Z3A.39 39 weeks gestation of pregnancy; O70.0 First degree perineal laceration during delivery
CPT/HCPCS: 36415; 59050; 59200; 59400; 59409; 80053; 82565; 82570; 84156; 84450; 84460; 84550; 85025; 86850; 86900; 86901; G0378; G0379; J2590

== ENCOUNTER → 2023-10-11 09:50 | Outpatient (CLI) | payer OTHER, SELFPAY | PROVIDERS: PCP Registered Nurse Diabetes Educator; Visit Provider Family Medicine | DX: N39.0 Urinary tract infection, site not specified (principal) | CPT/HCPCS: 87086 ==